=== PATIENT | female | born 2000 ===

== ENCOUNTER 2021-02-01 05:42 | Outpatient (CLI) | payer SELFPAY ==
[2021-02-01 06:09] VITALS: BP 127/86
[2021-02-01 09:02] LABS: Bacteria,Urine 1+ /HPF (Negative); Bilirubin,Urine NEG (Negative); Blood,Urine NEG (Negative); Color,Urine Yellow (Yellow); Mucus,Urine FEW /HPF; Protein,Urine <15 mg/dL mg/dL (Negative); Urobilinogen,Urine < 2.0 mg/dL (<2.0)
== END 2021-02-01 08:41 | disposition home or self-care (01) ==
LOC: TRG 05:42 → APU 05:53 → TRG 08:41
PROVIDERS: ATTEND Obstetrics & Gynecology
DX: O47.1 False labor at or after 37 completed weeks of gestation (principal); Z3A.39 39 weeks gestation of pregnancy
CPT/HCPCS: 59025; 81001